=== PATIENT | female | born 1960 | race Caucasian/White ===

== ENCOUNTER 2017-02-07 09:14 | Day surgery (SDC) | payer OTHER ==
[2017-02-06 14:30] VITALS: BMI 25.9
[2017-02-07] MEDS ORDERED: LIDOCAINE HCL/PF 2% SDV 5ML VIAL ONE (12:17)
[2017-02-07 13:53] VITALS: BP 108/59; PULSE 62; TEMP 97.8
--- NOTE | 2017-02-09 10:33 | PATH ---
Surgical Pathology Report Patient Name: PARAM LAZO [facility]. Rec. #: [id number] /Age/Gender: 1960 (Age: 56) / F Account: [id number] Location: [facility]-ENDOSCOPY Taken: 02/07/2017 Received: 02/08/2017 Reported: 02/09/2017 Physicians: Ayan Villatoro M.D. Specimen(s) Received BX ILEOCECAL VALVE Clinical History Constipation, colon screening, family history of pancreatic cancer Colon polyp Final Diagnosis ILEOCECAL VALVE, POLYP, BIOPSY: POLYPOID FRAGMENTS OF COLONIC MUCOSA WITH PROMINENT REACTIVE LYMPHOID AGGREGATES AND FOCAL SURFACE HYPERPLASTIC CHANGE. Electronically Signed Jostin Longoria M.D. Gross Description Received in formalin, labeled "biopsy ileocecal valve polyp" are 2 deluna, irregular portions of soft tissue averaging 0.3 cm in greatest dimension. The specimens are submitted in toto in one cassette. 02/08/201702/08/2017
== END 2017-02-07 13:50 | disposition home or self-care (01) ==
LOC: JASU-ENDO 09:14 → JOR 09:14 → JASU-ENDO 13:50
PROVIDERS: ATTEND Internal Medicine Gastroenterology
PROC: 0DBC8ZX Excision of Ileocecal Valve, Via Natural or Artificial Opening Endoscopic, Diagnostic (ICD-10-PCS; principal; 2017-02-07 11:00)
DX: Z12.11 Encounter for screening for malignant neoplasm of colon (principal); K63.5 Polyp of colon; K64.8 Other hemorrhoids
CPT/HCPCS: 84703; 88305-TC

== ENCOUNTER 2021-09-27 04:36 | Day surgery (SDC) | payer OTHER ==
[2021-09-23 13:49] VITALS: BMI 25.4
[2021-09-27] MEDS ORDERED: DEXMEDETOMIDINE HCL 200 MCG/2 ML IVPB ONE (07:21)
[2021-09-27] MEDS ORDERED: ACETAMINOPHEN INJECTION 200 ML IVPB ONE (07:22)
[2021-09-27] MEDS ORDERED: ISOSULFAN BLUE 50 MG/5 ML VIAL SQ ONE ×2 (08:53→09:19)
[2021-09-27] MEDS ORDERED: METHYLENE BLUE 50 MG/10 ML AMPUL ONE (08:53)
[2021-09-27] MEDS ORDERED: ceFAZolin SODIUM 1 GM VIAL ONE (09:03)
[2021-09-27] MEDS ORDERED: LIDOCAINE HCL/PF 2% SDV 5ML VIAL ONE ×2 (09:03→11:06)
[2021-09-27] MEDS ORDERED: KETOROLAC TROMETHAMINE 30 MG/1 ML VIAL ONE (09:03)
[2021-09-27] MEDS ORDERED: LIDOCAINE HCL 2% JELLY 10 ML CARTRIDGE ONE (09:03)
[2021-09-27] MEDS ORDERED: MIDAZOLAM HCL 2 MG/2 ML SINGLE DOSE VIAL ONE (10:02)
[2021-09-27] MEDS ORDERED: ceFAZolin SODIUM 1 GM VIAL IVPB ONE (10:19)
[2021-09-27] MEDS ORDERED: ROCURONIUM BROMIDE 50 MG/5 ML SYRINGE ONE (11:09)
[2021-09-27 18:07] VITALS: BP 114/58; PULSE 62; TEMP 97
== END 2021-09-27 17:50 | disposition home or self-care (01) ==
LOC: JASU-SURG 04:36
PROVIDERS: ATTEND Surgery
PROC: C71L1ZZ Planar Nuclear Medicine Imaging of Upper Chest Lymphatics using Technetium 99m (Tc-99m) (ICD-10-PCS; 2021-09-27)
PROC: 0HTU0ZZ Resection of Left Breast, Open Approach (ICD-10-PCS; principal; 2021-09-27 10:00)
PROC: 07B60ZX Excision of Left Axillary Lymphatic, Open Approach, Diagnostic (ICD-10-PCS; 2021-09-27 10:00)
DX: C50.912 Malignant neoplasm of unspecified site of left female breast (principal); E11.9 Type 2 diabetes mellitus without complications
CPT/HCPCS: 78195-TC; 88307-TC; 88341-TC; 88342-TC; 94760; A9541; J0131; Q9968

== ENCOUNTER → 2022-11-24 | Day surgery (SDC) | payer OTHER | END | disposition home or self-care (01) | LOC: JRADIR 09:49 | PROVIDERS: ATTEND Internal Medicine Endocrinology, Diabetes & Metabolism | PROC: 0G9H3ZX Drainage of Right Thyroid Gland Lobe, Percutaneous Approach, Diagnostic (ICD-10-PCS; principal; 2022-11-24) | DX: E04.1 Nontoxic single thyroid nodule (principal) | CPT/HCPCS: 10007; 76942; 88173; 88305-TC ==